=== PATIENT | male | born 1965 | race Caucasian/White ===

== ENCOUNTER 2018-03-05 09:25 | Outpatient (CLI) ==
--- NOTE | 2018-03-05 15:34 | US ---
EXAM: Transvaginal pelvic ultrasound HISTORY: Low abdominal pain and cramping COMPARISON: None available. TECHNIQUE: Transvaginal pelvic ultrasound FINDINGS: The uterus measures 5.8 x 2.3 x 3.5 cm. Endometrial stripe complex measures 2 mm. There is a subtle anterior uterine body heterogeneous focus measuring approximately 1.1 x 1.3 x 0.9 cm. The right ovary measures 2.5 x 2.0 x 1.9 cm. A right ovarian heterogeneous focus is seen measuring 1. 1 x 1.4 x 0.9 cm. Doppler flow is seen within this region. Left ovary is reportedly surgically absent. No free fluid is seen. IMPRESSION: 1.4 cm right ovarian heterogeneous focus may represent heterogeneous parenchyma versus a solid lesion . Close follow up with ultrasound in 4 weeks is recommended. 1.1 cm uterine heterogeneous focus could represent a fibroid. Status post left oophorectomy.
== END 2018-03-05 09:26 | disposition home or self-care (01) ==
LOC: RAD 09:25
PROVIDERS: ATTEND Internal Medicine
DX: R10.30 Lower abdominal pain, unspecified (principal)